=== PATIENT | male | born 2000 | race Caucasian/White ===

== ENCOUNTER 2021-05-28 20:41 | Emergency (ER) | payer BC ==
--- NOTE | 2021-05-28 22:07 | ED Upper Extremity ---
General Chief Complaint: Upper Extremity Stated Complaint: L HAND LAC Nursing Triage Note: PT AMBULATORY TO ED WITH C/O LACERATION TO L HAND. PT CUT HAND WITH CHISSEL WHILE AT WORK. 1.5 CM SUPERFICIAL LACERATION ON L PALM PROXIMAL TO THUMB. BLEEDING CONTROLLED. History of Present Illness Date Seen by Provider: May 28, 2021 Time Seen by Provider: 21:20 Initial Comments 21 year old male with abrasion to left hand at base of thumb. Superficial, no active bleeding. No other complaints. Pain/Injury Location: right hand Method of Injury: incised Allergies and Home Medications Allergies Coded Allergies: No Known Drug Allergies (Unverified , 05/28/21) Patient Home Medication List Home Medication List Reviewed: Yes Review of Systems Constitutional: no symptoms reported, see HPI Skin: other (abrasion left hand) All Other Systems Reviewed Negative Unless Noted: Yes Past Oyugltu-Egkscp-Enkenz Hx Family Medical History Reviewed Nursing Family Hx Physical Exam Vital Signs Vital Signs - First Documented 05/28/21 21:20 Temp 37.1 Pulse 78 Resp 16 B/P (MAP) 118/74 (89) Pulse Ox 100 O2 Delivery Room Air Capillary Refill : Less Than 3 Seconds Height, Weight, BMI Height: '" Weight: lbs. oz. kg; BMI Method: General Appearance: WD/WN, no apparent distress Cardiovascular: normal peripheral pulses, regular rate, rhythm Respiratory: chest non-tender, lungs clear Hand: normal ROM, Left, abrasions (base of thumb, palm side) Neurologic/Tendon: normal sensation, normal motor functions, normal tendon functions Neurologic/Psychiatric: no motor/sensory deficits, alert, normal mood/affect, oriented x 3 Progress/Results/Core Measures Results/Orders My Orders Orders - GUME SHIRLEY SKIN PILER Dipht,Pertuss(Acell),Tet Adult (Boostrix (05/28/21 22:15) Vital Signs/I&O 05/28/21 21:20 Temp 37.1 Pulse 78 Resp 16 B/P (MAP) 118/74 (89) Pulse Ox 100 O2 Delivery Room Air Blood Pressure Mean: 89 Progress Progress Note : Time: 21:20 Progress Note patient seen and evaluated. Wound irrigated with saline and hibclens. Sterile dressing applied. Discharge instructions and return precautions reviewed. Departure Impression Primary Impression: Abrasion Disposition: 01 HOME, SELF-CARE Condition: Improved Departure-Patient Inst. Decision time for Depature: 21:55 Referrals: NO,LOCAL PHYSICIAN (PCP/Family) Primary Care Physician Patient Instructions: Skin Abrasions (DC) Add. Discharge Instructions: Keep wound clean and dry for the next 24 hours and you may bathe as normal. Clean the wound with peroxide and apply triple antibiotic ointment 3 times da gabrielle. Use Band-Aids as needed. Return urgency department for new, urgent healthcare needs. All discharge instructions reviewed with patient and/or family. Voiced understanding. GUME SHIRLEY May 28, 2021 22:07
[2021-05-28] MEDS: TETANUS,DIPTH,PERTUSS P/F (BOOSTRIX) 0.5 ML VIAL IM ONE (22:18)
[2021-05-28 22:59] VITALS: BP 116/70
== END 2021-05-28 22:18 | disposition home or self-care (01) ==
LOC: ER 20:45
DX: S60.312A Abrasion of left thumb, initial encounter (principal); Z23 Encounter for immunization; W26.8XXA Contact with other sharp object(s), not elsewhere classified, initial encounter
CPT/HCPCS: 90715; 99284